=== PATIENT | female | born 1970 | race Caucasian/White ===

== ENCOUNTER 2016-08-14 09:46 | Outpatient (CLI) ==
[2012-11-11 08:25] VITALS: TEMP 98.2
[2015-06-10 00:45] VITALS: BMI 50.9
[2016-08-14 09:59] LABS: BASOPHILS % (AUTO) 0.3 % (0.0-3.0); EOSINOPHILS # (AUTO) 0.3 K/ul (0.0-0.7); EOSINOPHILS % (AUTO) 3.6 % (0.0-7.0); HEMOGLOBIN 13.5 g/dl (12.0-16.0); IMMATURE GRANULOCYTE % (AUTO) 0.5 % (0.0-5.0); LYMPHOCYTES % (AUTO) 25.7 (10.0-50.0); MEAN CORPUSCULAR HEMOGLOBIN 27.7 pg (27.0-31.0); MEAN CORPUSCULAR HGB CONC 32.9 (31.8-35.4); MONOCYTES # (AUTO) 0.5 K/uL (0.4-2.0); MONOCYTES % (AUTO) 6.4 (0-10); NEUTROPHILS % (AUTO) 63.5; PLATELET COUNT 263 10^3/uL (140-440); RED BLOOD COUNT 4.88 10^6/ul (4.20-5.40); WHITE BLOOD COUNT 7.83 K/ul (4.6-10.2)
[2016-08-14 10:39] LABS: ALBUMIN 3.5 g/dL (3.4-5.0); ANION GAP 12.7; BILIRUBIN,TOTAL 0.36 mg/dL (0.00-1.20); BUN/CREATININE RATIO 19.73; CHOL/HDL RATIO 5.3 (4.5-5.5); CREATININE 0.76 mg/dL (0.60-1.30); POTASSIUM 3.7 mmol/L (3.5-5.10)
== END 2016-08-14 09:47 | disposition home or self-care (01) ==
LOC: LAB 09:46
PROVIDERS: ATTEND Nurse Practitioner Family
DX: E03.9 Hypothyroidism, unspecified (principal); E66.9 Obesity, unspecified; E78.5 Hyperlipidemia, unspecified; F32.9 Major depressive disorder, single episode, unspecified
CPT/HCPCS: 36415; 80053; 80061; 84439; 84443; 85025

== ENCOUNTER 2016-08-21 10:43 | Outpatient (CLI) ==
[2012-11-11 08:25] VITALS: TEMP 98.2
[2015-06-10 00:45] VITALS: BMI 50.9
== END 2016-08-21 10:44 | disposition home or self-care (01) ==
LOC: LAB 10:43
PROVIDERS: ATTEND Nurse Practitioner Family
DX: R53.83 Other fatigue (principal)
CPT/HCPCS: 36415; 82306; 82607; 84402

== ENCOUNTER 2016-09-21 17:37 | Emergency (ER) ==
[2016-09-21 17:44] VITALS: BP 146/79; TEMP 100.2; BMI 51.5
[2016-09-21] MEDS: SODIUM CHLORIDE 1,000 ML IV STA (18:53)
[2016-09-21 18:58] LABS: BASOPHILS % (AUTO) 0.4 % (0.0-3.0); EOSINOPHILS # (AUTO) 0.2 K/ul (0.0-0.7); EOSINOPHILS % (AUTO) 2.4 % (0.0-7.0); HEMOGLOBIN 14.1 g/dl (12.0-16.0); IMMATURE GRANULOCYTE % (AUTO) 0.5 % (0.0-5.0); LYMPHOCYTES # (AUTO) 2.4 K/uL (0.60-3.4); LYMPHOCYTES % (AUTO) 24.6 (10.0-50.0); MEAN CORPUSCULAR HEMOGLOBIN 27.9 pg (27.0-31.0); MEAN CORPUSCULAR HGB CONC 33.6 (31.8-35.4); MONOCYTES # (AUTO) 0.6 K/uL (0.4-2.0); MONOCYTES % (AUTO) 6.5 (0-10); NEUTROPHILS # (AUTO) 6.5 K/ul (2.0-6.9); NEUTROPHILS % (AUTO) 65.6; PLATELET COUNT 283 10^3/uL (140-440); RED BLOOD COUNT 5.06 10^6/ul (4.20-5.40); WHITE BLOOD COUNT 9.89 K/ul (4.6-10.2)
[2016-09-21 19:12] LABS: ALBUMIN/GLOBULIN RATIO 1.11; ANION GAP 14.4; BILIRUBIN,TOTAL 0.39 mg/dL (0.00-1.20); BUN/CREATININE RATIO 15.71; CALCIUM 9.6 mg/dL (8.2-10.2); CREATININE 0.7 mg/dL (0.60-1.30); POTASSIUM 3.4 mmol/L (3.5-5.10); TOTAL PROTEIN 7.6 g/dL (6.4-8.2)
[2016-09-21] MEDS: PROTONIX IV IVP STA (19:23)
[2016-09-21 21:23] LABS: ADD URINE MICROSCOPIC YES; BILIRUBIN,URINE NEGATIVE (NEGATIVE); KETONES,URINE NEGATIVE (NEGATIVE); LEUKOCYTE ESTERASE ,URINE NEGATIVE (NEGATIVE); NITRITE,URINE NEGATIVE (NEGATIVE); PROTEIN,URINE TRACE (NEGATIVE); URINE, BLOOD NEGATIVE (NEGATIVE)
--- NOTE | 2016-09-21 21:37 | CT ---
EXAM: CT scan chest abdomen pelvis with and without contrast HISTORY: Swollen bone now with discomfort COMPARISON: None. FINDINGS: Contiguous axial images obtained through the chest abdomen pelvis both before after the u neventful administration of intravenous contrast utilizing 5-mm collimation. Sagittal and coronal r econstructions were imaged and reviewed.. The thoracic inlet is unremarkable. The heart is normal in size without pericardial effusion. There is no evidence of hilar or mediastinal lymphadenopathy. The lungs are clear bilaterally.. The gallbladder is fluid filled without cholelithiasis. Diffuse fatty infiltration is noted througho ut the liver. The pancreas spleen and adrenal glands have normal enhanced CT appearance. Kidneys e xcrete contrast in a normal fashion bilaterally. The abdominal aorta is normal in course and calibe r.. There has been prior hysterectomy. There is no evidence of free fluid or inflammatory changes. There is umbilical hernia containing only fat.. Bone windows reveals no evidence of lytic or ch[place] tic lesions. IMPRESSION: No acute intrathoracic or abdominal findings.
--- NOTE | 2016-09-21 21:57 | ED.PDOC ---
General ED Provider: Dr. PATSY IRAHETA-ER Chief Complaint: Non-specific Complaint Stated Complaint: i ate at [employer] and bit into chicken leg--swallowed something last night that hurt my chest --mark eaten chips, salsa crackers and drinking dr pepper but it hurts when i swallow Time Seen by Physician: 17:40 Mode of Arrival: Walk-In Information Source: Patient Exam Limitations: No limitations Primary Care Provider: ANNABELLA CHAVARRIA Nursing and Triage Documentation Reviewed and Agree: Yes GI Complaint Exam - Abdominal Pain Complaint/Exam Onset: Gradual Duration: 24hrs Symptoms Are: Still present Timing: Intermittent Initial Severity: Mild Current Severity: Mild Location of Pain: Discrete, Epigastric Radiates To: Reports: Chest Character: Reports: Dull, Aching, Burning Aggravating: Reports: Eating. Denies: Movement, Food, Deep breaths, Position Alleviating: Reports: Spontaneous resolution Associated Signs and Symptoms: Reports: Chest pain. Denies: Diaphoresis, Fever , Cough, Dizziness, Back pain, Constipation, Blood in stool, Dysuria, Urinary frequency, Decreased urine output, Decreased appetite, Vaginal bleeding, Vaginal discharge, Nausea, Vomiting, Diarrhea, Sore throat, Decreased activity Patient Rh Status: Unknown Abdominal Findings: Present: None Quality Indicator For Non-Traumatic Chest Pain/Syncope: EKG Performed Review of Systems - Review Of Systems Constitutional: Reports: No symptoms Eyes: Reports: No symptoms Ears, Nose, Mouth, Throat: Reports: No symptoms Respiratory: Reports: No symptoms Cardiac: Reports: No symptoms GI: Reports: No symptoms, Abdominal pain. Denies: Abdomen distended, Blood streaked bowels, Constipated, Diarrhea, Difficulty swallowing, Nausea, Poor appetite, Poor fluid intake, Rectal bleeding, Vomiting : Reports: No symptoms Musculoskeletal: Reports: No symptoms Skin: Reports: No symptoms Neurological: Reports: No symptoms Endocrine: Reports: No symptoms Hematologic/Lymphatic: Reports: No symptoms All Other Systems: Reviewed and Negative Past Medical History - Past Medical History Previously Healthy: No Endocrine: Reports: Hypothyroid Cardiovascular: Reports: Hypertension, DVT Respiratory: Reports: Asthma Hematological: Reports: None Gastrointestinal: Reports: None Genitourinary: Reports: None Neuro/Psych: Reports: Anxiety, Depression Musculoskeletal: Reports: None Cancer: Reports: None Last Menstrual Period: hysterectomy - Surgical History General Surgical History: Reports: (x2), Orthopedic (tendon repair left knee), Other (OVARIES) - Family History Family History: Reports: Unknown - Social History Smoking Status: Never smoker Hx Substance Use: No Alcohol Screening: None Physical Exam - Physical Exam Appearance: Well-appearing, No pain distress, Well-nourished Pain Distress: Mild Eyes: SORAIAD, EOMI, Conjunctiva clear ENT: Ears normal, Nose normal, Oropharynx normal Neck: Supple Respiratory: Airway patent, Breath sounds clear, Breath sounds equal, Respirations nonlabored Cardiovascular: RRR, Pulses normal, No rub, No murmur GI/: Soft, Nontender, No masses, Bowel sounds normal, No Organomegaly Musculoskeletal: Normal strength, ROM intact, No edema, No calf tenderness Skin: Warm, Dry, Normal color Neurological: Sensation intact, Motor intact, Reflexes intact, Cranial nerves intact, Alert, Oriented Psychiatric: Affect appropriate, Mood appropriate Interpretation - Radiology Interpretation Radiology Interpretation By: Radiologist Radiology Results: Negative Exam Interpreted: CT Scan - EKG Interpretation Time of EKG #1: 22:01 Rate: Normal Rhythm: Sinus Ectopy: None [place]: NL ST Segment: Normal Re-Evaluation - Re-Evaluation Time of Re-Evaluation: 22:02 Status: Improved Vital Signs Stable: Yes Pain Level: 1 Appearance: NAD Lungs: Clear Skin: Warm and Dry Neuro: Alert and Oriented X3 CV: RRR Additional Comments: drinking dr pepper without swallowing trouble or vomiting Critical Care Note - Critical Care Note Total Time (mins): 0 Course - Course Hematology/Chemistry: 09/21/16 18:46 09/21/16 18:46 Orders, Labs, Meds: Lab Review 09/21/16 09/21/16 18:46 21:10 WBC 9.89 RBC 5.06 Hgb 14.1 Hct 42.0 MCV 83.0 MCH 27.9 MCHC 33.6 RDW Coeff of [place] 14.2 Plt Count 283 Immature Gran % (Auto) 0.5 Neut % (Auto) 65.6 Lymph % (Auto) 24.6 [place] % (Auto) 6.5 Eos % (Auto) 2.4 Baso % (Auto) 0.4 Immature Gran # (Auto) 0.1 Neut # 6.5 Lymph # 2.4 [place] # 0.6 Eos # 0.2 Baso # 0.0 Sodium 140 Potassium 3.4 L Chloride 101 Carbon Dioxide 28 Anion Gap 14.4 BUN 11 Creatinine 0.70 Estimated GFR (MDRD) 91.00 BUN/Creatinine Ratio 15.71 Glucose 104 Calcium 9.6 Total Bilirubin 0.39 AST 18 ALT 24 Alkaline Phosphatase 66 Total Protein 7.6 Albumin 4.0 Globulin 3.6 Albumin/Globulin Ratio 1.11 Amylase 36 Lipase 23 Urine Color Yellow Urine Clarity Clear Urine pH 6.0 Ur Specific [place] 1.020 Urine Protein Trace Urine Glucose (UA) Negative Urine Ketones Negative Urine Blood Negative Urine Nitrite Negative Urine Bilirubin Negative Urine Urobilinogen 0.2 Ur Leukocyte Esterase Negative Urine Microscopic RBC 5-10 Ur Squamous Epith Cells 2-5 Urine Mucus Trace Orders Category Date Time Status EKG-(ED ONLY) Stat CARDIO 09/21/16 18:33 Completed NPO REMINDER: IMAGING ONCE CARE 09/21/16 18:34 Active IV [ED IV/MEDIPORT/POWERPORT] .ONCE EMERGENCY 09/21/16 18:33 Active ABG Stat LAB 09/21/16 18:33 Ordered AMYLASE Stat LAB 09/21/16 18:46 Completed CBC W/ AUTO DIFF Stat LAB 09/21/16 18:46 Completed COMPREHENSIVE METABOLIC PANEL Stat LAB 09/21/16 18:46 Completed LIPASE Stat LAB 09/21/16 18:46 Completed UA [URINALYSIS C & S IF INDICATED] Stat LAB 09/21/16 21:10 Completed 0.9 % Sodium Chloride [Saline Flush] MEDS 09/21/16 18:33 Ordered 1 syr IVF PRN PRN Pantoprazole Sodium [Protonix IV] MEDS 09/21/16 18:33 Discontinued 40 mg IVP ONCE STA Sodium Chloride 0.9% [Sodium Chloride] 1,000 ml MEDS 09/21/16 18:33 Active IV 100 mls/hr CT ABDOMEN/PELVIS W/WO CONTRAS Stat RADS 09/21/16 18:[address] CHEST W/WO CONTRAST Stat RADS 09/21/16 18:33 Completed Medications Generic Name Dose Route Start Last Admin Trade Name Freq PRN Reason Stop Dose Admin Sodium Chloride 1,000 mls @ 100 mls/hr 09/21/16 18:33 09/21/16 18:53 Sodium Chloride IV 09/22/16 04:32 100 mls/hr .Q10H STA Administration Sodium Chloride 1 syr 09/21/16 18:33 Saline Flush IVF PRN PRN To flush IV Discontinued Medications Generic Name Dose Route Start Last Admin Trade Name Freq PRN Reason Stop Dose Admin Pantoprazole Sodium 40 mg 09/21/16 18:33 09/21/16 19:23 Protonix Iv IVP 09/21/16 18:34 40 mg ONCE STA Administration Vital Signs: Temp Pulse Resp BP Pulse Ox 09/21/16 17:38 100.2 F H 80 16 146/79 H 93 L Departure - Departure Time of Disposition: 22:02 Disposition: TSF SHORT-TRM HOSP Discharge Problem: Esophagitis Instructions: Esophagitis (ED) Condition: Good Pt referred to PMD for follow-up: Yes Allergies/Adverse Reactions: Allergies erythromycin base [Erythromycin Base] Adverse Reaction (Verified 09/21/16 17:44) Home Medications: Ambulatory Orders Aspirin [Aspirin EC] 81 mg PO DAILYWM 04/26/15 Albuterol Sulfate [Albuterol Sulfate Hfa] 2 puff IH Q4H PRN 06/10/15 Cetirizine HCl [Allergy] 10 mg PO d 08/21/16 Transfer Form Completed: Yes Disposition Discussed With: Patient, Family
== END 2016-09-21 23:05 | disposition short-term general hospital (02) ==
LOC: ED 17:37
DX: K20.9 Esophagitis, unspecified (principal)
CPT/HCPCS: 36415; 80053; 81001; 82150; 83690; 85025; 93005; 93010; 96361; 96374; 99285

== ENCOUNTER 2016-09-21 23:14 | Outpatient (CLI) ==
[2012-11-11 08:25] VITALS: TEMP 98.2
[2016-09-21 17:44] VITALS: BMI 51.5
== END 2016-09-21 23:15 ==
LOC: AMBL 23:14
PROVIDERS: ATTEND Family Medicine
DX: T18.9XXA Foreign body of alimentary tract, part unspecified, initial encounter (principal)

== ENCOUNTER 2016-10-08 15:21 | Outpatient (CLI) ==
[2012-11-11 08:25] VITALS: TEMP 98.2
== END 2016-10-08 15:22 | disposition home or self-care (01) ==
LOC: LAB 15:21
PROVIDERS: ATTEND Nurse Practitioner Family
DX: J02.9 Acute pharyngitis, unspecified (principal)
CPT/HCPCS: 87651; 87880

== ENCOUNTER 2016-11-07 15:38 | Outpatient (CLI) ==
[2012-11-11 08:25] VITALS: TEMP 98.2
[2016-11-07 16:44] LABS: ALBUMIN 3.5 g/dL (3.4-5.0); ALBUMIN/GLOBULIN RATIO 1.06; ANION GAP 12.2; BILIRUBIN,TOTAL 0.31 mg/dL (0.00-1.20); BUN/CREATININE RATIO 15.06; CREATININE 0.73 mg/dL (0.60-1.30); POTASSIUM 3.2 mmol/L (3.5-5.10); TOTAL PROTEIN 6.8 g/dL (6.4-8.2)
== END 2016-11-07 15:39 | disposition home or self-care (01) ==
LOC: LAB 15:38
PROVIDERS: ATTEND Nurse Practitioner Family
DX: E87.6 Hypokalemia (principal); R63.5 Abnormal weight gain
CPT/HCPCS: 36415; 80053

== ENCOUNTER 2017-02-19 12:38 | Outpatient (CLI) ==
[2012-11-11 08:25] VITALS: TEMP 98.2
[2017-02-19 13:48] LABS: ALBUMIN 3.5 g/dL (3.4-5.0); ALBUMIN/GLOBULIN RATIO 0.97; ANION GAP 11.7; BILIRUBIN,TOTAL 0.4 mg/dL (0.00-1.20); BUN/CREATININE RATIO 14.28; CALCIUM 8.9 mg/dL (8.2-10.2); CHOL/HDL RATIO 5.3 (4.5-5.5); CREATININE 0.7 mg/dL (0.60-1.30); POTASSIUM 3.7 mmol/L (3.5-5.10); TOTAL PROTEIN 7.1 g/dL (6.4-8.2)
== END 2017-02-19 12:39 | disposition home or self-care (01) ==
LOC: LAB 12:38
PROVIDERS: ATTEND Nurse Practitioner Family
DX: E87.6 Hypokalemia (principal); E55.9 Vitamin D deficiency, unspecified; E78.5 Hyperlipidemia, unspecified; E03.9 Hypothyroidism, unspecified
CPT/HCPCS: 36415; 80053; 80061; 82306; 84443

== ENCOUNTER 2017-02-20 12:28 | Outpatient (CLI) ==
[2012-11-11 08:25] VITALS: TEMP 98.2
== END 2017-02-20 12:29 | disposition home or self-care (01) ==
LOC: RAD 12:28
PROVIDERS: ATTEND Nurse Practitioner Family
DX: Z12.31 Encounter for screening mammogram for malignant neoplasm of breast (principal)
CPT/HCPCS: 77067

== ENCOUNTER 2017-03-06 10:01 | Outpatient (CLI) ==
[2012-11-11 08:25] VITALS: TEMP 98.2
--- NOTE | 2017-03-07 14:14 | MRI ---
EXAM: Lumbar spine MRI without contrast. HISTORY: Low back pain. COMPARISON: Lumbar spine radiographs 09/24/[address] chest abdomen pelvis 09/21/2016. TECHNIQUE: Multiplanar, multisequence MR images were acquired of the lumbar spine without contrast. The study is degraded by decreased [id number] due to the patient's large body habitus with incre ased distance of the spine from the coil. FINDINGS: Five non-rib bearing lumbar vertebra are present. The lumbar vertebrae normal in height a nd intrinsic bone marrow signal. Alignment is near anatomic II. There is a trace retrolisthesis of L 4 on L5. There is mild chronic anterior wedging of the T11 vertebra. There is ventral spondylosis w ith reactive dark STIR signal sclerosis along the anterior endplates at T11-12, disc desiccation and moderate anterior disc space narrowing. At L3-4 and L4-5, there is ventral spondylosis with mild dis c desiccation. At L5-S1, there is ventral spondylosis with mild disc space narrowing and reactive ma rrow changes along the endplates. Conus medullaris ends at L1-2 and has normal signal intensity. 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 There is prominent dorsal epidural fat. The partially visualized liver, spleen and kidneys are unremarkable. There are no paravertebral mass es. T12-L1: The intervertebral disc is normal. L1-2: Intervertebral disc is normal. L2-3: The intervertebral disc is normal. L3-4: There is a minor disc bulge without central canal stenosis or foraminal stenosis. L4-5: There is retrolisthesis of L4 on L5 and there is a mild spondylotic disc bulge with endplate o steophytes that is greatest posteriorly with a small central disc protrusion and endplate osteophytes that minimally effaces the ventral thecal sac. There is prominent dorsal epidural fat and in this pa tient with a developmentally narrow canal, this causes mild spinal stenosis. AP diameter of the theca l sac is 8.4 mm. L5-S1: The intervertebral disc is normal. There are minor right far endplate osteophytes. There is no central canal stenosis or foraminal stenosis. IMPRESSION: 1. Minor lumbar degenerative spondylosis. 2. Mild discogenic disease L4-5 which in this patient with a developmentally narrow canal and mildly prominent dorsal epidural fat causes mild spinal stenosis.
== END 2017-03-06 10:02 | disposition home or self-care (01) ==
LOC: RAD 10:01
PROVIDERS: ATTEND Nurse Practitioner Family
DX: M54.5 Low back pain (principal); G89.29 Other chronic pain

== ENCOUNTER 2017-04-20 15:49 | Emergency (ER) ==
[2017-04-20 15:53] VITALS: BP 132/85; TEMP 99.8; BMI 55.3
== END 2017-04-20 16:27 | disposition left against medical advice (07) ==
LOC: ED 15:49
DX: M25.561 Pain in right knee (principal); M25.461 Effusion, right knee
CPT/HCPCS: 99281

== ENCOUNTER 2017-05-23 17:25 | Emergency (ER) ==
[2017-05-23 17:25] VITALS: BMI 55.3
[2017-05-23 17:30] VITALS: BP 158/102; TEMP 99.3
[2017-05-23] MEDS ORDERED: DUONEB NEB STA ×2 (18:52→20:32)
--- NOTE | 2017-05-23 18:58 | ED.PDOC ---
General ED Provider: Dr. PATSY DAMON Chief Complaint: Respiratory Complaint Stated Complaint: Chest congestion and shortness of breath. Hx of Asthma Time Seen by Physician: 18:45 Mode of Arrival: Walk-In Information Source: Patient Exam Limitations: No limitations Primary Care Provider: [facility] Nursing and Triage Documentation Reviewed and Agree: Yes Reviewed sepsis parameters & appropriate labs ordered?: Yes System Inflammatory Response Syndrome: Not Applicable Sepsis Protocol: For patient's 13 years and over: Temp is 96.8 and below OR 101 and greater Pulse >90 BPM Resp >20/minute Acutely Altered Mental Status Are patient's symptoms suggestive of a new infection, such as: -Pneumonia -Skin, Soft Tissue -Endocarditis -UTI -Bone, Joint Infection -Implantable Device -Acute Abdominal Infection -Wound Infection -Meningitis -Blood Stream Catheter Infection -Unknown System Inflammatory Response Syndrome: Not Applicable Respiratory Complaint Exam - Asthma Complaint/Exam Symptoms Are: Still present Timing: Constant Initial Severity: Moderate Current Severity: Moderate Character: Reports: Wheezing Aggravating: Reports: Exertion, Weather change Alleviating: Reports: Steroids, Inhalers, Nebulizers Associated Signs and Symptoms: Reports: URI, Labored breathing Related History: Reports: Similar episode Related Surgical History: Reports: None Current Asthma Medication Usage: Yes Recent Antibiotics: No Respiratory Distress: Mild Accessory Muscle Use: No Retractions: Not Present Diminished Breath Sounds: Yes Prolonged Expiratory Phase: No Review of Systems - Review Of Systems Constitutional: Reports: Chills Eyes: Reports: No symptoms Ears, Nose, Mouth, Throat: Reports: No symptoms Respiratory: Reports: Cough, Short of air, Wheezing Cardiac: Reports: No symptoms GI: Reports: No symptoms : Reports: No symptoms Musculoskeletal: Reports: No symptoms Skin: Reports: No symptoms Neurological: Reports: No symptoms Endocrine: Reports: No symptoms Hematologic/Lymphatic: Reports: No symptoms All Other Systems: Reviewed and Negative Past Medical History - Past Medical History Previously Healthy: No Endocrine: Reports: Hypothyroid Cardiovascular: Reports: Hypertension, DVT Respiratory: Reports: Asthma Hematological: Reports: None Gastrointestinal: Reports: None Genitourinary: Reports: None Neuro/Psych: Reports: Anxiety, Depression Musculoskeletal: Reports: None Cancer: Reports: None Last Menstrual Period: hysterectomy - Surgical History General Surgical History: Reports: (x2), Orthopedic (tendon repair left knee), Other (OVARIES) - Family History Family History: Reports: Unknown - Social History Smoking Status: Never smoker Hx Substance Use: No Alcohol Screening: None Physical Exam - Physical Exam Appearance: Ill-appearing, Obese Ill-appearing: Severe Pain Distress: Mild Eyes: SOR[place], EOMI, Conjunctiva clear ENT: Ears normal, Nose normal, Oropharynx normal Neck: Supple Respiratory: Breath sounds diminished, Rhonchi, Wheezes Cardiovascular: RRR, Pulses normal, No rub, No murmur GI/: Soft, No masses, No Organomegaly Musculoskeletal: Normal strength, ROM intact, No edema, No calf tenderness Skin: Warm, Dry, Pale Neurological: Sensation intact, Motor intact, Cranial nerves intact Psychiatric: Affect appropriate, Mood appropriate Critical Care Note - Critical Care Note Total Time (mins): 0 Course - Course Hematology/Chemistry: 05/23/17 19:15 05/23/17 19:15 Orders, Labs, Meds: Lab Review 05/23/17 05/23/17 05/23/17 17:40 18:58 19:15 WBC 6.38 RBC 5.23 Hgb 14.2 Hct 43.2 MCV 82.6 MCH 27.2 MCHC 32.9 RDW Coeff of [place] 14.8 Plt Count 250 Immature Gran % (Auto) 0.3 Neut % (Auto) 72.1 Lymph % (Auto) 17.7 [place] % (Auto) 8.8 Eos % (Auto) 0.8 Baso % (Auto) 0.3 Immature Gran # (Auto) 0.0 Neut # 4.6 Lymph # 1.1 [place] # 0.6 Eos # 0.1 Baso # 0.0 Puncture Site Lr O2 Saturation 90.0 L ABG pH 7.470 H ABG pCO2 42.3 ABG pO2 55.0 L* ABG HCO3 30.8 H ABG Total CO2 32 H ABG Base Excess 7 H Jose Test + FiO2 % 21.0 Sodium Potassium Chloride Carbon Dioxide Anion Gap BUN Creatinine Estimated GFR (MDRD) BUN/Creatinine Ratio Glucose Calcium Influenza A (Rapid) Positive by naat H Influenza B (Rapid) Negative by naat 05/23/17 19:15 WBC RBC Hgb Hct MCV MCH MCHC RDW Coeff of [place] Plt Count Immature Gran % (Auto) Neut % (Auto) Lymph % (Auto) [place] % (Auto) Eos % (Auto) Baso % (Auto) Immature Gran # (Auto) Neut # Lymph # [place] # Eos # Baso # Puncture Site O2 Saturation ABG pH ABG pCO2 ABG pO2 ABG HCO3 ABG Total CO2 ABG Base Excess Jose Test FiO2 % Sodium 137 Potassium 3.3 L Chloride 100 Carbon Dioxide 28 Anion Gap 12.3 BUN 14 Creatinine 0.77 Estimated GFR (MDRD) 81.00 BUN/Creatinine Ratio 18.18 Glucose 122 H Calcium 8.9 Influenza A (Rapid) Influenza B (Rapid) Orders Category Date Time Status ABG DRAW REQUEST Stat CARDIO 05/23/17 18:59 Completed NEBULIZER TREATMENT Routine CARDIO 05/23/17 20:02 Ordered NEBULIZER TREATMENT Stat CARDIO 05/23/17 18:53 Completed ABG Stat LAB 05/23/17 18:58 Completed BMP [BASIC METABOLIC PANEL] Stat LAB 05/23/17 19:15 Completed CBC W/ AUTO DIFF Stat LAB 05/23/17 19:15 Completed FLU A & B RAPID TEST [MOLECULAR FLU A/B] Stat LAB 05/23/17 17:40 Completed Albuterol Sulfate 0.083% Neb [Albuterol 0.083% Neb] MEDS 05/23/17 20:30 Ordered 1 vial NEB RTQID Dexamethasone 4 mg/ml Inj [Decadron 4 mg/ml Sdv] MEDS 05/23/17 20:03 Stat 4 mg IM ONCE STA Ipratropium/Albuterol Neb [Duoneb] MEDS 05/23/17 18:52 Discontinued 1 vial NEB ONCE STA Potassium Chloride [K-Dur] MEDS 05/23/17 20:08 Stat 20 meq PO ONCE STA CHEST, 2 VIEWS PA & LAT Stat RADS 05/23/17 20:04 Ordered Medications Generic Name Dose Route Start Last Admin Trade Name Freq PRN Reason Stop Dose Admin Albuterol Sulfate 1 vial 05/23/17 20:30 Albuterol 0.083% Neb NEB RTQID GURMEET Potassium Chloride 20 meq 05/23/17 20:08 K-Dur PO 05/23/17 20:09 ONCE STA Discontinued Medications Generic Name Dose Route Start Last Admin Trade Name Freq PRN Reason Stop Dose Admin Albuterol/Ipratropium 1 vial 05/23/17 18:52 05/23/17 19:12 Duoneb NEB 05/23/17 18:53 1 vial ONCE STA Administration Dexamethasone Sodium Phosphate 4 mg 05/23/17 20:03 Decadron 4 Mg/Ml Sdv IM 05/23/17 20:04 ONCE STA Vital Signs: Temp Pulse Resp BP Pulse Ox 05/23/17 17:26 99.3 F 91 H 20 158/102 H 92 L Departure - Departure Discharge Problem: Asthma attack, Influenza A Instructions: Influenza (ED), Hypokalemia (ED), Asthma (ED) Allergies/Adverse Reactions: Allergies erythromycin base [Erythromycin Base] Adverse Reaction (Verified 05/23/17 17:32) Home Medications: Ambulatory Orders Aspirin [Aspirin EC] 81 mg PO DAILYWM 04/26/15 Albuterol Sulfate [Albuterol Sulfate Hfa] 2 puff IH Q4H PRN 06/10/15
[2017-05-23] MEDS ORDERED: DECADRON 4 MG/ML SDV IM STA (20:03)
[2017-05-23] MEDS ORDERED: K-DUR PO STA (20:08)
[2017-05-23] MEDS ORDERED: ALBUTEROL 0.083% NEB NEB SCH (20:30)
--- NOTE | 2017-05-23 20:30 | DI ---
EXAM: PA and lateral views of the chest HISTORY: Acute respiratory congestion COMPARISON: 06/10/2015 FINDINGS: The cardiac silhouette is at the upper limits of normal. There is borderline central pulmonary vascul ar prominence. No focal consolidation, pleural effusion or pneumothorax is seen. IMPRESSION: Heart size at the upper limits of normal. Borderline central pulmonary vascular prominence without o vert pulmonary edema. No focal infiltrate.
[2017-05-23] MEDS ORDERED: TAMIFLU PO STA (20:32)
== END 2017-05-23 21:40 | disposition home or self-care (01) ==
LOC: ED 17:25
DX: J09.X2 Influenza due to identified novel influenza A virus with other respiratory manifestations (principal); J45.901 Unspecified asthma with (acute) exacerbation; I10 Essential (primary) hypertension; E87.6 Hypokalemia
CPT/HCPCS: 36415; 80048; 82803; 85025; 87502; 94640; 96372; 99283

== ENCOUNTER 2017-06-14 16:09 | Outpatient (CLI) ==
[2012-11-11 08:25] VITALS: TEMP 98.2
--- NOTE | 2017-06-14 16:35 | DI ---
EXAM: CHEST FRONTAL AND LATERAL VIEWS HISTORY: Shortness of breath. COMPARISON: 05/23/2017 FINDINGS: Upper limit normal heart size is stable. Mild bronchovascular thickening in the central l amadeo zones more noticeable on the left. There are scattered calcifications suggesting old granulomatou s disease. Lungs are otherwise unremarkable. IMPRESSION: Mild bronchovascular thickening which could indicate early bronchitis or pneumonia. Curr ently no well-defined lobar consolidation.
== END 2017-06-14 16:10 | disposition home or self-care (01) ==
LOC: LAB 16:09
PROVIDERS: ATTEND Nurse Practitioner Family
DX: R06.02 Shortness of breath (principal); R73.9 Hyperglycemia, unspecified; E87.6 Hypokalemia; E78.5 Hyperlipidemia, unspecified
CPT/HCPCS: 36415; 80053; 83036; 83880

== ENCOUNTER 2017-06-19 08:18 | Outpatient (CLI) ==
[2012-11-11 08:25] VITALS: TEMP 98.2
--- NOTE | 2017-06-19 10:23 | US ---
Exam: Ng-scale and color Doppler ultrasonographic evaluation of the right upper quadrant. Limited abdominal ultrasound Comparison: CT chest abdomen pelvis performed 09/21/2016. Reason for exam: Right upper quadrant pain. FINDINGS: The liver measures approximately 14 x 94 cm in length and 18 cm in the AP direction with a hyperechoic echotexture. There is no obvious ductal dilatation or perihepatic free fluid. There is normal antegrade portal venous flow. The gallbladder wall measures 0.22 cm which is within normal limits. Large stones are seen within the dependent portion of the gallbladder. The sonographic Wade's test was reportedly negative. The common bile duct measures 0.42 cm without intraluminal stone or polyp. The partially imaged pancreas appears grossly unremarkable without ductal dilatation. The right kidney measures approximately 10.87 x 5.51 x 5.46 cm with normal appearing echotexture, no hydronephrosis, and no nephrolithiasis. Impression: 1. Cholelithiasis without evidence of cholecystitis. 2. Prominent appearing liver with hyperechoic echotexture.
== END 2017-06-19 08:19 | disposition home or self-care (01) ==
LOC: RAD 08:18
PROVIDERS: ATTEND Nurse Practitioner Family
DX: R10.11 Right upper quadrant pain (principal); R10.811 Right upper quadrant abdominal tenderness

== ENCOUNTER 2017-07-10 09:55 | Outpatient (CLI) ==
[2012-11-11 08:25] VITALS: TEMP 98.2
== END 2017-07-10 09:56 | disposition home or self-care (01) ==
LOC: LAB 09:55
PROVIDERS: ATTEND Nurse Practitioner Family
DX: E78.5 Hyperlipidemia, unspecified (principal)
CPT/HCPCS: 36415; 80053; 80061

== ENCOUNTER 2017-08-08 16:44 | Emergency (ER) ==
[2017-08-08 16:51] VITALS: BMI 54.6
[2017-08-08] MEDS ORDERED: BACTRIM DS 800/160 MG PO STA (21:10)
[2017-08-08] MEDS ORDERED: NORCO 7.5-325 PO STA (21:10)
--- NOTE | 2017-08-08 21:13 | ED.PDOC ---
General ED Provider: Dr. OCTAVIA CRAIG Chief Complaint: Wound Check Stated Complaint: Patient had Lap Cholecystectomy 3, some of the surgical wounds are not healing, the one in cencer is oozing some yellow stuff. Time Seen by Physician: 21:11 Information Source: Patient Primary Care Provider: OCTAVIA CRAIG[facility] Nursing and Triage Documentation Reviewed and Agree: Yes Reviewed sepsis parameters & appropriate labs ordered?: No System Inflammatory Response Syndrome: Not Applicable Sepsis Protocol: For patient's 13 years and over: Temp is 96.8 and below OR 101 and greater Pulse >90 BPM Resp >20/minute Acutely Altered Mental Status Are patient's symptoms suggestive of a new infection, such as: -Pneumonia -Skin, Soft Tissue -Endocarditis -UTI -Bone, Joint Infection -Implantable Device -Acute Abdominal Infection -Wound Infection -Meningitis -Blood Stream Catheter Infection -Unknown Skin Complaint Exam - Skin/Soft Tissue Complaint/Exam Symptoms Are: Still present Timing: Constant Initial Severity: Mild Current Severity: Mild Character: Reports: Redness, Swelling, Raised, Painful Aggravating: Reports: Touch Alleviating: Reports: None Associated Signs and Symptoms: Denies: Fever, Chills, Itching, Drainage, Bruising, Tenderness, Red streaks, Joint swelling Recent Exposure to Others w/Similar Symptoms: No Skin Findings: Present: Erythema, Induration. Absent: Fluctuant mass Differential Diagnoses: Cellulitis, Infection Review of Systems - Review Of Systems Constitutional: Reports: No symptoms Eyes: Reports: No symptoms Ears, Nose, Mouth, Throat: Reports: No symptoms Respiratory: Reports: No symptoms Cardiac: Reports: No symptoms GI: Reports: No symptoms : Reports: No symptoms Musculoskeletal: Reports: No symptoms Skin: Reports: No symptoms Neurological: Reports: No symptoms Endocrine: Reports: No symptoms Hematologic/Lymphatic: Reports: No symptoms All Other Systems: Reviewed and Negative Past Medical History - Past Medical History Previously Healthy: No Endocrine: Reports: Hypothyroid Cardiovascular: Reports: Hypertension, DVT Respiratory: Reports: Asthma Hematological: Reports: None Gastrointestinal: Reports: None Genitourinary: Reports: None Neuro/Psych: Reports: Anxiety, Depression Musculoskeletal: Reports: None Cancer: Reports: None Last Menstrual Period: hysterectomy - Surgical History General Surgical History: Reports: (x2), Cholecystectomy (20), Orthopedic (tendon repair left knee), Other (OVARIES) - Family History Family History: Reports: Unknown - Social History Smoking Status: Never smoker Hx Substance Use: No Alcohol Screening: None Physical Exam - Physical Exam Appearance: Well-appearing, No pain distress, Well-nourished Eyes: SORAIDA, EOMI, Conjunctiva clear ENT: Ears normal, Nose normal, Oropharynx normal Respiratory: Airway patent, Breath sounds clear, Breath sounds equal, Respirations nonlabored Cardiovascular: RRR, Pulses normal, No rub, No murmur GI/: Soft, Nontender, No masses, Bowel sounds normal, No Organomegaly Musculoskeletal: Normal strength, ROM intact, No edema, No calf tenderness Skin: Warm, Dry, Normal color Neurological: Sensation intact, Motor intact, Reflexes intact, Cranial nerves intact, Alert, Oriented Psychiatric: Affect appropriate, Mood appropriate Critical Care Note - Critical Care Note Total Time (mins): 19 Course - Course Orders, Labs, Meds: Orders Category Date Time Status Hydrocodone Bit/Acetaminophen [[place] 7.5-325] MEDS 08/08/17 21:10 Stat 1 tab PO ONCE STA Sulfamethoxazole/Trimethoprim [Bactrim Ds 800/160 mg] MEDS 08/08/17 21:10 Stat 1 tab PO ONCE STA Medications Discontinued Medications Generic Name Dose Route Start Last Admin Trade Name Freq PRN Reason Stop Dose Admin Hydrocodone Bitart/Acetaminophen 1 tab 08/08/17 21:10 [place] 7.5-325 PO 08/08/17 21:11 ONCE STA Trimethoprim/Sulfamethoxazole 1 tab 08/08/17 21:10 Bactrim Ds 800/160 Mg PO 08/08/17 21:11 ONCE STA Vital Signs: Temp Pulse Resp BP Pulse Ox 08/08/17 16:45 99.0 F 113 H 20 141/71 H 91 L Departure - Departure Time of Disposition: 21:14 Disposition: HOME SELF-CARE Discharge Problem: Surgical wound infection Qualifiers: Encounter type: initial encounter Qualified Code(s): T81.4XXA - Infection following a procedure, initial encounter Instructions: Cellulitis (ED) Condition: Stable Pt referred to PMD for follow-up: Yes IPMP verified?: No Additional Instructions: skin hygiene Do not touch the areas. F/u [facility] in 3-4 days Increase hydration Prescriptions: Sulfamethoxazole/Trimethoprim [Bactrim Ds 800/160 mg] 1 tab PO Q12HR #20 tablet Allergies/Adverse Reactions: Allergies erythromycin base [Erythromycin Base] Adverse Reaction (Verified 08/08/17 16:52) Home Medications: Ambulatory Orders Aspirin [Aspirin EC] 81 mg PO DAILYWM 04/26/15 Albuterol Sulfate [Albuterol Sulfate Hfa] 2 puff IH Q4H PRN 06/10/15 Sulfamethoxazole/Trimethoprim [Bactrim Ds 800/160 mg] 1 tab PO Q12HR #20 tablet 08/08/17 Disposition Discussed With: Patient
[2017-08-08 21:21] VITALS: BP 128/86; TEMP 98.8
== END 2017-08-08 21:18 | disposition home or self-care (01) ==
LOC: ED 16:44
DX: T81.4XXA Infection following a procedure, initial encounter (principal); Z90.49 Acquired absence of other specified parts of digestive tract
CPT/HCPCS: 99282

== ENCOUNTER 2017-09-24 09:05 | Outpatient (POV) | payer OTHER ==
[2012-11-11 08:25] VITALS: TEMP 98.2
== END 2017-09-24 17:00 ==
LOC: OUTPT 09:05
PROVIDERS: ATTEND Otolaryngology
DX: H91.90 Unspecified hearing loss, unspecified ear (principal)

== ENCOUNTER 2017-10-15 08:03 | Outpatient (POV) ==
[2012-11-11 08:25] VITALS: TEMP 98.2
== END 2017-10-15 17:00 ==
LOC: OUTPT 08:03
PROVIDERS: ATTEND Otolaryngology
DX: H69.90 Unspecified Eustachian tube disorder, unspecified ear (principal)

== ENCOUNTER 2017-10-22 11:42 | Outpatient (CLI) ==
[2012-11-11 08:25] VITALS: TEMP 98.2
== END 2017-10-22 11:43 | disposition home or self-care (01) ==
LOC: RHC-LAB 11:42
PROVIDERS: ATTEND Nurse Practitioner Family
DX: R73.03 Prediabetes (principal); E78.5 Hyperlipidemia, unspecified; E03.9 Hypothyroidism, unspecified; E55.9 Vitamin D deficiency, unspecified
CPT/HCPCS: 36415; 80053; 80061; 82306; 83036; 84443

== ENCOUNTER 2017-10-29 12:18 | Outpatient (CLI) ==
[2012-11-11 08:25] VITALS: TEMP 98.2
== END 2017-10-29 12:19 | disposition home or self-care (01) ==
LOC: RHC-LAB 12:18
PROVIDERS: ATTEND Otolaryngology
DX: H92.11 Otorrhea, right ear (principal)
CPT/HCPCS: 87070

== ENCOUNTER 2018-02-11 12:35 | Outpatient (CLI) ==
[2012-11-11 08:25] VITALS: TEMP 98.2
--- NOTE | 2018-02-11 14:07 | DI ---
Exam: Five views of the abdomen. Comparison: CT chest abdomen pelvis performed 09/21/2016. Reason for exam: Unspecified abdominal pain. FINDINGS: Image interpretation is limited by body habitus. The bowel gas pattern appears nonspecifi c and nonobstructive. Operative changes are seen in the right upper quadrant after presumed to gallb ladder removal. The imaged osseous structures appear grossly unremarkable. Impression: Nonspecific, nonobstructive bowel gas pattern. Image interpretation is limited by body habitus
== END 2018-02-11 12:36 | disposition home or self-care (01) ==
LOC: RHC-LAB 12:35
PROVIDERS: ATTEND Nurse Practitioner Family
DX: R10.9 Unspecified abdominal pain (principal); R19.00 Intra-abdominal and pelvic swelling, mass and lump, unspecified site; R00.2 Palpitations; R07.89 Other chest pain; R73.9 Hyperglycemia, unspecified; H53.8 Other visual disturbances; E78.5 Hyperlipidemia, unspecified; E66.9 Obesity, unspecified; E03.9 Hypothyroidism, unspecified
CPT/HCPCS: 36415; 80053; 80061; 83037; 84443; 85025; 93005; 93010

== ENCOUNTER 2018-03-10 16:07 | Outpatient (CLI) ==
[2012-11-11 08:25] VITALS: TEMP 98.2
== END 2018-03-10 16:08 | disposition home or self-care (01) ==
LOC: LAB 16:07
PROVIDERS: ATTEND Nurse Practitioner Family
DX: E78.5 Hyperlipidemia, unspecified (principal); E78.1 Pure hyperglyceridemia; E03.9 Hypothyroidism, unspecified; R79.89 Other specified abnormal findings of blood chemistry
CPT/HCPCS: 36415; 84443

== ENCOUNTER 2018-06-28 10:52 | Outpatient (CLI) ==
[2012-11-11 08:25] VITALS: TEMP 98.2
== END 2018-06-28 10:53 | disposition home or self-care (01) ==
LOC: LAB 10:52
PROVIDERS: ATTEND Nurse Practitioner Family
DX: E78.5 Hyperlipidemia, unspecified (principal); E03.9 Hypothyroidism, unspecified
CPT/HCPCS: 36415; 80053; 80061; 84443

== ENCOUNTER 2018-12-30 11:09 | Outpatient (CLI) ==
[2012-11-11 08:25] VITALS: TEMP 98.2
== END 2018-12-30 11:10 | disposition home or self-care (01) ==
LOC: RHC-LAB 11:09
PROVIDERS: ATTEND Nurse Practitioner Family
DX: E78.1 Pure hyperglyceridemia (principal); E78.5 Hyperlipidemia, unspecified